=== PATIENT | male | born 1960 | race Caucasian/White ===

== ENCOUNTER 2016-10-16 22:12 | Emergency (ER) | payer MEDICAID, OTHER ==
[~2016-10-16] VITALS: Ht 167.6 cm; Wt 110.0 kg
[~2016-10-16 22:12] MED LIST: CLOT24CR4 TOP; MTF1000T PO
[2016-10-16 22:15] VITALS: Ht 167.6 cm; Wt 110.0 kg
[2016-10-16 23:06] LABS: URINE BLOOD (Dip) POC 1+ (NEGATIVE)
[2016-10-16] MEDS ORDERED: ONDANSETRON 4 MG INJ IV STA (23:38)
[2016-10-16] MEDS ORDERED: HYDROmorphONE 1 MG/ML SYG IV STA (23:38)
[2016-10-16 23:55] LABS: ADD SCAN DIFF NO
[2016-10-16 23:56] LABS: BASOPHILS % 0.2 % (0.0-2.0); EOSINOPHILS # 0.1 10^3/ul (0.0-0.5); EOSINOPHILS % 0.6 % (0.0-7.0); HEMATOCRIT 46.8 % (42.0-52.0); HEMOGLOBIN 15.9 g/dl (14.0-18.0); LYMPHOCYTES # 1.5 10^3/ul (0.8-2.9); LYMPHOCYTES % 11.5 % (15.0-51.0); MEAN CORPUSCULAR HEMOGLOBIN 31.9 pg (29.0-33.0); MEAN PLATELET VOLUME 10.3 fl (7.4-10.4); MONOCYTE # 0.7 10^3/ul (0.3-0.9); MONOCYTES % 5.1 % (0.0-11.0); NEUTROPHIL # 10.9 10^3/ul (1.6-7.5); NEUTROPHILS % 82.1 % (39.0-77.0); PLATELET COUNT 272 10^3/UL (140-415); RED BLOOD COUNT 4.98 10^6/ul (4.70-6.10); RED CELL DISTRIBUTION WIDTH 13.9 % (11.5-14.5); WHITE BLOOD COUNT 13.2 10^3/ul (4.8-10.8)
[2016-10-17 00:03] LABS: CALCIUM 9.2 mg/dl (8.4-10.2); CREATININE 1.06 mg/dl (0.61-1.24); POTASSIUM 4.1 mmol/L (3.5-5.1)
[2016-10-17] MEDS ORDERED: IBUP200C11 PO (00:04)
[2016-10-17 00:28] LABS: ADD UMIC YES; URINE BILIRUBIN (Dip) NEGATIVE (NEGATIVE); URINE BLOOD (Dip) 1+ (NEGATIVE); URINE COLOR LT. YELLOW (YELLOW); URINE KETONES (Dip) 15 (NEGATIVE); URINE LEUKOCYTE ESTERASE (Dip) NEGATIVE (NEGATIVE); URINE NITRITE (Dip) NEGATIVE (NEGATIVE); URINE TOTAL PROTEIN (Dip) NEGATIVE (NEGATIVE); URINE UROBILINOGEN (Dip) 0.2 E.U./dL (0.1-1.0)
[2016-10-17 00:43] LABS: BACTERIA,URINE RARE; SQUAMOUS EPITHELIAL CELL,UR RARE
--- NOTE | 2016-10-17 02:15 | RADRPT ---
PROCEDURE: CT Abdomen and pelvis without contrast. CLINICAL INDICATION: Abdominal pain. TECHNIQUE: CT scan of the abdomen and pelvis was performed on a multi-detector high-resolution CT scanner. Contiguous axial images were obtained from the lung bases to the ischial tuberosities wit hout intravenous contrast. Coronal and sagittal reformatted images were also obtained. Images were reviewed on the PACS workstation. One or more of the following dose reduction techniques were used: - Automated exposure control. - Adjustment of the mA and/or kV according to patient size. - Use of iterative reconstruction technique. Exam CTD/vol = 23.29 mGy. Total exam DLP = 1619.87 mGy-cm. COMPARISON: None. FINDINGS: Evaluation of the lung bases demonstrates mild bibasilar atelectasis. Abdomen: The liver is normal in size and diffusely low in attenuation consistent with fatty infiltr ation. There is no focal mass or dilatation of the biliary tree. The gallbladder is not distended. The spleen, pancreas and bilateral adrenal glands are within normal limits. Bilateral kidneys are normal in size with multiple cysts. There is no radiopaque renal calculus identified. There is mi ld left-sided hydronephrosis with perinephric stranding there is a 5 x 4 mm calculus within the left proximal ureter at the level of the iliac crests. There is no retroperitoneal adenopathy. The abd ominal aorta is of normal caliber with minimal scattered atherosclerotic calcifications. There is a small umbilical hernia containing fat. There is no abnormal bowel wall thickening or dis tension. There is no bowel obstruction or free air. A normal appendix is identified. There is no diverticulosis or diverticulitis. There is no ascites. Pelvis: The bladder is unremarkable. There is a small left inguinal hernia containing focal sigmoi d colon and fat. There is a small right inguinal hernia containing fat. The prostate and seminal v esicles are within normal limits. There is no significant pelvic adenopathy or free fluid. Evaluation of the osseous structures demonstrates no suspicious lytic or blastic lesion. IMPRESSION: Left proximal ureteral 5 x 4 mm calculus with mild left-sided hydronephrosis. Small left inguinal hernia containing focal loop of sigmoid colon and fat. There is no bowel obstru ction. Small umbilical and right inguinal hernias containing fat. Fatty infiltration of the liver. Bilateral renal cysts. Mild bibasilar atelectasis. Minimal vascular calcifications reflective of atherosclerosis. .Durga Thompson MD, MD Date Time Electronically viewed and signed by .Durga Thompson MD, MD on 10/17/2016 02:14 .T/
[2016-10-17] MEDS ORDERED: HYDR-902 PO (02:33)
[2016-10-17] MEDS ORDERED: TAMS-14 PO (02:33)
[2016-10-17] MEDS ORDERED: CIPR500T4 PO (02:34)
--- NOTE | 2016-10-17 02:37 | ERD ---
ER Documentation Chief Complaint Date/Time DATE: 10/17/16 TIME: 02:34 Chief Complaint left lower abd pain radaiting to back since 3 hours ago HPI This is a 56-year-old male complains of left-sided flank pain that radiates into the left groin onset 3 hours prior to arrival. The patient does not have history of kidney stones. He describes the pain is sharp. There is no vomiting but does have nausea. No hematuria no dysuria no frequency no abdominal pain no chest pain shortness of breath. ROS All systems reviewed and are negative except as per history of present illness. Medications Home Meds Active Scripts Ciprofloxacin Hcl* (Ciprofloxacin Hcl*) 500 Mg Tablet, 500 MG PO BID for 5 Days , TAB Prov:PATRICK YOUSTOLOS A. DO 10/17/16 Hydrocodone/Acetaminophen ([place] 10-325 Tablet) 1 Each Tablet, 1 TAB PO Q6H Y for PAIN, #20 TAB Prov:PATRICK YOUSTOLOS A. DO 10/17/16 Tamsulosin Hcl* (Flomax*) 0.4 Mg Cap.er.24h, 0.4 MG PO BID for PAIN, #20 CAP Prov:PATRICK YOUSTOLOS A. DO 10/17/16 Metformin* (Glucophage*) 1,000 Mg Tablet, 1000 MG PO BID for 30 Days, TAB Prov:LOUISA SWEENEY MD 07/11/15 Reported Medications Ibuprofen* (Advil*) 200 Mg Capsule, 400 MG PO Q6H Y for PAIN, CAP 10/17/16 Discontinued Scripts Clotrimazole* (Lotrimin* AF) 1% - 24 Gm Cream.gm., 1 APPLIC TOP BID for 7 Days, TUB Prov:LOUISA SWEENEY MD 07/11/15 Allergies Allergies: Coded Allergies: No Known Allergy (Unverified , 10/17/16) PMhx/Soc Medical and Surgical Hx: pt denies Surgical Hx History of Surgery: No Anesthesia Reaction: No Hx Neurological Disorder: No Hx Respiratory Disorders: No Hx Cardiac Disorders: No Hx Psychiatric Problems: No Hx Miscellaneous Medical Probl: Yes (prostate, diabetes) Hx Alcohol Use: No Hx Substance Use: No Hx Tobacco Use: No Smoking Status: Never smoker FmHx Family History: No coronary disease Physical Exam Vitals Vital Signs Date Time Temp Pulse Resp B/P Pulse Ox O2 Delivery O2 Flow Rate FiO2 10/16/16 22:15 98.4 70 20 123/69 97 Physical Exam Const: Well-developed, well-nourished, moderately uncomfortable Head: Atraumatic, normocephalic Eyes: Normal Conjunctiva, PERRLA, EOMI, normal sclera, no nystagmus ENT: Normal External Ears, Nose and Mouth, moist mucus membranes. Neck: Full range of motion. No meningismus, no lymphadenopathy. Resp: Clear to auscultation bilaterally, no wheezing, rhonchi, rales Cardio: Regular rate and rhythm, no murmurs, S1 S2 present Abd: Soft, non tender x 4, non distended. Normal bowel sounds, no guarding or rebound, no pulsitile abdominal masses or bruits Skin: No petechiae or rashes, no ecchymosis , no maculopapular rash Back: Mild left CVA tenderness Ext: No cyanosis, or edema, FROM x 4, normal inspection, neurovascularly intact x 4 Neur: Awake and alert, STR 5/5 x 4, sensation intact x 4, no focal findings, cerebellum intact Psych: Normal Mood and Affect Result Diagram: 10/16/16224910/16/162249 Results 24 hrs Laboratory Tests Test 10/16/16 22:50 10/16/16 23:07 White Blood Count 13.210^3/ul Red Blood Count 4.9810^6/ul Hemoglobin 15.9g/dl Hematocrit 46.8% Mean Corpuscular Volume 94.0fl Mean Corpuscular Hemoglobin 31.9pg Mean Corpuscular Hemoglobin Concent 34.0g/dl Red Cell Distribution Width 13.9% Platelet Count 02381^3/UL Mean Platelet Volume 10.3fl Neutrophils % 82.1% Lymphocytes % 11.5% Monocytes % 5.1% Eosinophils % 0.6% Basophils % 0.2% Nucleated Red Blood Cells % 0.0/100WBC Neutrophils # 10.910^3/ul Lymphocytes # 1.510^3/ul Monocytes # 0.710^3/ul Eosinophils # 0.110^3/ul Basophils # 0.010^3/ul Nucleated Red Blood Cells # 0.010^3/ul Urine Color LT. YELLOW Urine Clarity CLEAR Urine pH 6.0 Urine Specific [place] 1.025 Urine Ketones 15 Urine Nitrite NEGATIVE Urine Bilirubin NEGATIVE Urine Urobilinogen 0.2 E.U./dL Urine Leukocyte Esterase NEGATIVE Urine Microscopic RBC 5-10/HPF Urine Microscopic WBC 0-2/HPF Urine Squamous Epithelial Cells RARE Urine Bacteria RARE Urine Hemoglobin 1+ Urine Glucose 0.5%% Urine Total Protein NEGATIVE Sodium Level 136mmol/L Potassium Level 4.1mmol/L Chloride Level 104mmol/L Carbon Dioxide Level 27mmol/L Anion Gap 9 Blood Urea Nitrogen 15mg/dl Creatinine 1.06mg/dl Glucose Level 216mg/dl Calcium Level 9.2mg/dl Bedside Urine pH (LAB) 6.5 Bedside Urine Protein (LAB) 1+ Bedside Urine Glucose (UA) 0.50% Bedside Urine Ketones (LAB) 2+ Bedside Urine Blood 1+ Bedside Urine Nitrite (LAB) Negative Bedside Urine Leukocyte Esterase (L Negative Current Medications Medications (Trade) Dose Ordered Sig/Susan Route PRN Reason Start Time Stop Time Status Last Admin Dose Admin Hydromorphone HCl (Dilaudid) 1 mg ONCE STAT IV 10/16/16 23:38 10/16/16 23:39 DC 10/16/16 23:47 Ondansetron HCl (Zofran Inj) 4 mg ONCE STAT IV 10/16/16 23:38 10/16/16 23:39 DC 10/16/16 23:43 Procedures/MDM PROCEDURE: CT Abdomen and pelvis without contrast. CLINICAL INDICATION: Abdominal pain. TECHNIQUE: CT scan of the abdomen and pelvis was performed on a multi- detector high-resolution CT scanner. Contiguous axial images were obtained from the lung bases to the ischial tuberosities without intravenous contrast. Coronal and sagittal reformatted images were also obtained. Images were reviewed on the PACS workstation. One or more of the following dose reduction techniques were used: - Automated exposure control. - Adjustment of the mA and/or kV according to patient size. - Use of iterative reconstruction technique. Exam CTD/vol = 23.29 mGy. Total exam DLP = 1619.87 mGy-cm. COMPARISON: None. FINDINGS: Evaluation of the lung bases demonstrates mild bibasilar atelectasis. Abdomen: The liver is normal in size and diffusely low in attenuation consistent with fatty infiltration. There is no focal mass or dilatation of the biliary tree. The gallbladder is not distended. The spleen, pancreas and bilateral adrenal glands are within normal limits. Bilateral kidneys are normal in size with multiple cysts. There is no radiopaque renal calculus identified. There is mild left-sided hydronephrosis with perinephric stranding there is a 5 x 4 mm calculus within the left proximal ureter at the level of the iliac crests. There is no retroperitoneal adenopathy. The abdominal aorta is of normal caliber with minimal scattered atherosclerotic calcifications. There is a small umbilical hernia containing fat. There is no abnormal bowel wall thickening or distension. There is no bowel obstruction or free air. A normal appendix is identified. There is no diverticulosis or diverticulitis. There is no ascites. Pelvis: The bladder is unremarkable. There is a small left inguinal hernia containing focal sigmoid colon and fat. There is a small right inguinal hernia containing fat. The prostate and seminal vesicles are within normal limits. There is no significant pelvic adenopathy or free fluid. Evaluation of the osseous structures demonstrates no suspicious lytic or blastic lesion. IMPRESSION: Left proximal ureteral 5 x 4 mm calculus with mild left-sided hydronephrosis. Small left inguinal hernia containing focal loop of sigmoid colon and fat. There is no bowel obstruction. Small umbilical and right inguinal hernias containing fat. Fatty infiltration of the liver. Bilateral renal cysts. Mild bibasilar atelectasis. Minimal vascular calcifications reflective of atherosclerosis. .Durga Thompson MD, MD Date Time Electronically viewed and signed by .Durga Thompson MD, MD on 10/17/2016 02:14 .T/ CC: MADDY YOU DO Patient has pain control. There is a left proximal ureter stone. We will discharge home on [place], Cipro, Flomax. Copy of CT scan has been given to patient. Departure Diagnosis: Primary Impression: Ureterolithiasis Condition: Stable Patient Instructions: Kidney Stone W/ Colic Referrals: HEATHER TORRES MD, APOSTOLOS A. DO October 17, 2016 02:36
[2016-10-17 03:00] VITALS: BP 153/79; PULSE 71; RESP 20; TEMP 98.4
== END 2016-10-17 03:00 | disposition home or self-care (01) ==
LOC: E/R 22:12
DX: N20.1 Calculus of ureter (principal); R11.0 Nausea; E11.9 Type 2 diabetes mellitus without complications; Z79.84 Long term (current) use of oral hypoglycemic drugs
CPT/HCPCS: 36415; 74176; 80048; 81001; 81003; 85025; 96374; 96375; J1170; J2405; Z7502

== ENCOUNTER 2017-01-10 05:29 | Emergency (ER) | payer MEDICAID ==
[~2017-01-10] VITALS: Ht 167.6 cm; Wt 106.5 kg
[~2017-01-10 05:29] MED LIST changes: +CIPR500T4 PO; -CLOT24CR4 TOP; +HYDR-902 PO; +IBUP200C11 PO; +TAMS-14 PO
[2017-01-10 05:32] VITALS: Ht 167.6 cm; Wt 106.5 kg
[2017-01-10] MEDS ORDERED: ONDANSETRON 4 MG INJ IV STA (06:27)
[2017-01-10] MEDS ORDERED: KETOROLAC 30 MG INJ IV STA (06:27)
[2017-01-10] MEDS ORDERED: HYDROmorphONE 1 MG/ML SYG IV STA (06:27)
[2017-01-10 06:36] LABS: BASOPHILS % 0.2 % (0.0-2.0); EOSINOPHILS % 0.1 % (0.0-7.0); HEMOGLOBIN 16.2 g/dl (14.0-18.0); LYMPHOCYTES # 1.4 10^3/ul (0.8-2.9); LYMPHOCYTES % 10.3 % (15.0-51.0); MEAN CORPUSCULAR HEMOGLOBIN 31.9 pg (29.0-33.0); MEAN CORPUSCULAR HGB CONC 33.8 g/dl (32.0-37.0); MEAN CORPUSCULAR VOLUME 94.5 fl (82.0-101.0); MEAN PLATELET VOLUME 9.7 fl (7.4-10.4); MONOCYTE # 0.8 10^3/ul (0.3-0.9); MONOCYTES % 5.4 % (0.0-11.0); NEUTROPHILS % 83.6 % (39.0-77.0); PLATELET COUNT 312 10^3/UL (140-415); RED BLOOD COUNT 5.08 10^6/ul (4.70-6.10)
[2017-01-10 06:40] LABS: ADD UMIC YES; UR ASCORBIC ACID NEGATIVE (NEGATIVE); UR BILIRUBIN (Dip) NEGATIVE (NEGATIVE); UR BLOOD (Dip) 1+ mg/dL (NEGATIVE); UR CLARITY CLEAR (CLEAR); UR COLOR STRAW (YELLOW); UR GLUCOSE (Dip) 3+ mg/dL (NEGATIVE); UR KETONES (Dip) 1+ mg/dL (NEGATIVE); UR LEUKOCYTE ESTERASE (Dip) NEGATIVE Leu/ul (NEGATIVE); UR NITRITE (Dip) NEGATIVE (NEGATIVE); UR RBC 3 /HPF (0-5); UR SPECIFIC GRAVITY (Dip) 1.013 (1.003-1.030); UR TOTAL PROTEIN (Dip) NEGATIVE (NEGATIVE); UR UROBILINOGEN (Dip) NEGATIVE (NEGATIVE)
[2017-01-10 06:54] LABS: ALBUMIN 4.6 g/dl (3.3-4.9); ALBUMIN/GLOBULIN RATIO 1.35; BILIRUBIN,INDIRECT 0.6 mg/dl (0-1.1); BILIRUBIN,TOTAL 0.6 mg/dl (0.2-1.3); CALCIUM 9.5 mg/dl (8.4-10.2); CREATININE 1.21 mg/dl (0.61-1.24); POTASSIUM 4.5 mmol/L (3.5-5.1)
[2017-01-10] MEDS ORDERED: HYDR-902 PO (07:41)
[2017-01-10] MEDS ORDERED: TAMS-14 PO (07:41)
[2017-01-10] MEDS ORDERED: IBUP-1542 PO (07:41)
[2017-01-10 08:53] VITALS: BP 140/62; PULSE 65; RESP 20
--- NOTE | 2017-01-10 11:15 | ERD ---
ER Documentation Chief Complaint Date/Time DATE: 01/10/17 TIME: 11:12 Chief Complaint left flank pain started since 5 hours ago at 1am HPI Patient is a 56-year-old male with diabetes and kidney stone who presents with flank pain. It is left-sided flank pain that started at 1 AM. It is sharp and constant. The patient tried "pain pills". He had subjective fever. On October [address] scan which showed a 5 x 4 mm left-sided kidney stone. He says that this feels similar to previous kidney stone. Upon review of old medical records this is the patient's third visit to the ER since 2016. The patient does not currently have a urologist. ROS All systems reviewed and are negative except as per history of present illness. Medications Home Meds Active Scripts Ibuprofen* (Motrin*) 600 Mg Tab, 600 MG PO Q8, #30 TAB Prov:GILBERTO WYLIE MD 01/10/17 Hydrocodone/Acetaminophen ([place] 10-325 Tablet) 1 Each Tablet, 1 TAB PO Q6H Y for PAIN, #12 TAB Prov:GILBERTO WYLIE MD 01/10/17 Tamsulosin Hcl* (Flomax*) 0.4 Mg Cap.er.24h, 0.4 MG PO QPM, #30 CAP Prov:GILBERTO WYLIE MD 01/10/17 Ciprofloxacin Hcl* (Ciprofloxacin Hcl*) 500 Mg Tablet, 500 MG PO BID for 5 Days , TAB Prov:MADDY YOU DO 10/17/16 Hydrocodone/Acetaminophen ([place] 10-325 Tablet) 1 Each Tablet, 1 TAB PO Q6H Y for PAIN, #20 TAB Prov:MADDY YOU DO 10/17/16 Tamsulosin Hcl* (Flomax*) 0.4 Mg Cap.er.24h, 0.4 MG PO BID for PAIN, #20 CAP Prov:PATRICK YOUSTLUIS ENRIQUES ALetty DO 10/17/16 Metformin* (Glucophage*) 1,000 Mg Tablet, 1000 MG PO BID for 30 Days, TAB Prov:LOUISA SWEENEY MD 07/11/15 Reported Medications Ibuprofen* (Advil*) 200 Mg Capsule, 400 MG PO Q6H Y for PAIN, CAP 10/17/16 Allergies Allergies: Coded Allergies: No Known Allergy (Unverified , 10/17/16) PMhx/Soc History of Surgery: No Anesthesia Reaction: No Hx Neurological Disorder: No Hx Respiratory Disorders: No Hx Cardiac Disorders: No Hx Psychiatric Problems: No Hx Miscellaneous Medical Probl: Yes (prostate, diabetes) Hx Alcohol Use: No Hx Substance Use: No Hx Tobacco Use: No Smoking Status: Former smoker FmHx Family History: No diabetes Physical Exam Vitals Vital Signs Date Time Temp Pulse Resp B/P Pulse Ox O2 Delivery O2 Flow Rate FiO2 01/10/17 08:53 65 20 140/62 98 Room Air 01/10/17 06:45 73 20 153/93 99 Room Air 01/10/17 05:32 97.8 67 20 197/105 98 Physical Exam Const: Moderate distress secondary to pain Head: Atraumatic Eyes: Normal Conjunctiva ENT: Normal External Ears, Nose and Mouth. Neck: Full range of motion..~ No meningismus. Resp: Clear to auscultation bilaterally Cardio: Regular rate and rhythm, no murmurs Abd: Soft, non tender, non distended. Normal bowel sounds Skin: No petechiae or rashes Back: No midline or flank tenderness Ext: No cyanosis, or edema Neur: Awake and alert Psych: Normal Mood and Affect Result Diagram: 01/10/1762001/10/1721 Results 24 hrs Laboratory Tests Test 01/10/17 06:21 White Blood Count 14.010^3/ul Red Blood Count 5.0810^6/ul Hemoglobin 16.2g/dl Hematocrit 48.0% Mean Corpuscular Volume 94.5fl Mean Corpuscular Hemoglobin 31.9pg Mean Corpuscular Hemoglobin Concent 33.8g/dl Red Cell Distribution Width 14.0% Platelet Count 30326^3/UL Mean Platelet Volume 9.7fl Neutrophils % 83.6% Lymphocytes % 10.3% Monocytes % 5.4% Eosinophils % 0.1% Basophils % 0.2% Nucleated Red Blood Cells % 0.0/100WBC Neutrophils # (Manual) 1210^3/ul Lymphocytes # 1.410^3/ul Monocytes # 0.810^3/ul Eosinophils # 0.010^3/ul Basophils # 0.010^3/ul Nucleated Red Blood Cells # 0.010^3/ul Urine Color STRAW Urine Clarity CLEAR Urine pH 8.0 Urine Specific [place] 1.013 Urine Ketones 1+mg/dL Urine Nitrite NEGATIVEmg/dL Urine Bilirubin NEGATIVEmg/dL Urine Urobilinogen NEGATIVEmg/dL Urine Leukocyte Esterase NEGATIVELeu/ul Urine Microscopic RBC 3/HPF Urine Microscopic WBC 1/HPF Urine Hemoglobin 1+mg/dL Urine Glucose 3+mg/dL Urine Total Protein NEGATIVEmg/dl Sodium Level 145mmol/L Potassium Level 4.5mmol/L Chloride Level 99mmol/L Carbon Dioxide Level 28mmol/L Anion Gap 23 Blood Urea Nitrogen 12mg/dl Creatinine 1.21mg/dl Glucose Level 181mg/dl Calcium Level 9.5mg/dl Total Bilirubin 0.6mg/dl Direct Bilirubin 0.00mg/dl Indirect Bilirubin 0.6mg/dl Aspartate Amino Transf (AST/SGOT) 29IU/L Alanine Aminotransferase (ALT/SGPT) 41IU/L Alkaline Phosphatase 106IU/L Total Protein 8.0g/dl Albumin 4.6g/dl Globulin 3.40g/dl Albumin/Globulin Ratio 1.35 Lipase 47U/L Current Medications Medications (Trade) Dose Ordered Sig/Susan Route PRN Reason Start Time Stop Time Status Last Admin Dose Admin Hydromorphone HCl (Dilaudid) 1 mg ONCE STAT IV 01/10/17 06:27 01/10/17 06:32 DC 01/10/17 06:38 Ketorolac Tromethamine (Toradol) 30 mg ONCE STAT IV 01/10/17 06:27 01/10/17 06:32 DC 01/10/17 06:38 Ondansetron HCl (Zofran Inj) 4 mg ONCE STAT IV 01/10/17 06:27 01/10/17 06:32 DC 01/10/17 06:37 Procedures/MDM Smoking Cessation Therapy: Pt. was lectured for greater than 3 minutes on the health risks of continued smoking and the benefits of cessation. Patient is a 56-year-old male who presents with left-sided flank pain. I believe this is likely another kidney stone and I do not want to do a CT scan of the abdomen pelvis as I believe the risks would outweigh the benefits as he has had any stone in the past and this feels similar. His laboratory studies show a mildly elevated white blood cell count but there is no sign of urine infection or infected stone. The patient is well-appearing was given pain medications and feels better. The patient can return for any worsening symptoms. He should follow-up with a urologist and I will give him information for Dr. Torres and should follow-up within 24-48 hours. The patient can return sooner for any worsening symptoms. Departure Diagnosis: Primary Impression: Kidney stone Additional Impression: Flank pain Condition: Fair Patient Instructions: Kidney Stone W/ Colic Referrals: HEATHER TORRES MD Additional Instructions: Specialist:Usted tiene david condicin mdica que requiere que yariel a un especialista dentro de los prximos 1-2 terrell.POR FAVOR,CON HALL SEGUIMIENTO DE PRIMARIA PHSICIAN refferal. SI USTED NO TIENE UN MDICO GENERAL Y / O USTED NO PUEDE PAGAR patricia a un mdico,los siguientes john RECURSOS sido suministrado a usted. ES HALL RESPONSABILIDAD PARA SER VISTOS POR EL ESPECIALISTA: GILBERTO WYLIE MD Jan 10, 2017 11:15
== END 2017-01-10 08:55 | disposition home or self-care (01) ==
LOC: E/R 05:29
DX: N20.0 Calculus of kidney (principal); E11.9 Type 2 diabetes mellitus without complications; Z79.84 Long term (current) use of oral hypoglycemic drugs; Z87.891 Personal history of nicotine dependence
CPT/HCPCS: 36415; 80053; 81001; 83690; 85025; 96374; 96375; J1170; J1885; J2405; Z7502